=== PATIENT | male | born 1990 | race African-American/Black ===

== ENCOUNTER 2019-08-13 17:54 | Emergency (ER) | payer OTHER ==
[~2019-08-13] VITALS: Ht 172.7 cm; Wt 81.7 kg
[~2019-08-13 17:54] MED LIST: NORCO 5-325 TA1 EACH PO; PHENERGAN 25 MG25 M1 PO; PROTONIX40 M2 PO; VENTOLIN HFA 1818 GM INH; ZOFRAN4 MG PO
[2019-08-13 18:16] VITALS: BP 150/80
[2019-08-13] MEDS ORDERED: MOBIC15 MG PO (20:18)
[2019-08-13] MEDS ORDERED: GUAIFEN-CODEINE10 ML PO (20:18)
[2019-08-13] MEDS ORDERED: PROAIR HFA8.5 GM INH (20:18)
[2019-08-13] MEDS ORDERED: TESSALON PERLE100 MG PO (20:18)
== END 2019-08-13 20:46 | disposition home or self-care (01) ==
LOC: ER 17:54
DX: J06.9 Acute upper respiratory infection, unspecified (principal); Z20.828 Contact with and (suspected) exposure to other viral communicable diseases; J45.909 Unspecified asthma, uncomplicated; F17.210 Nicotine dependence, cigarettes, uncomplicated; Z79.899 Other long term (current) drug therapy; Z88.2 Allergy status to sulfonamides